=== PATIENT | male | born 1950 | race Caucasian/White ===

== ENCOUNTER 2016-04-16 16:50 | Emergency (ER) | payer OTHER ==
[~2016-04-16] VITALS: Ht 180.3 cm; Wt 80.5 kg
[~2016-04-16 16:50] MED LIST: AMPH10SR PO; ASPI-973 PO; CHOL200025 PO; CYAN500 PO; LAMO100T2 PO; LAMO200T2 PO; LISD70CA2 PO; MINO100T PO; MULT-1018 PO; PARO40TA3 PO; smz/tmp PO
[2016-04-16 16:58] VITALS: BP 138/74; PULSE 86; RESP 16; O2SAT 97
--- NOTE | 2016-04-16 17:52 | ED.REPORT ---
HPI-Rash / Abscess Date of Service Apr 16, 2016 ED Provider: Brian Maurer PA-C Kike is a 65-year-old male with a history of CLL and MRSA infections who presents with a rash on his thigh. Patient states that he noticed a small pimple there yesterday morning which came to a head. He popped that returned this morning he popped out again at this time reports is roughly the size of a nickel. Since that time it has grown to be significantly larger, about 15 cm in widest dimension. He has a standing prescription for minocycline 100 mg and Bactrim DS. He has taken 2 doses, one last night and one this morning. Denies systemic symptoms such as fever, chills, malaise, cold sweats, chest pain, palpitations, shortness of breath, wheezing, abdominal pain, vomiting, diarrhea. Nursing Notes Stated Complaint: LEFT THIGH RED AND SWELLING Chief Complaint: Skin Rash/Abscess Nursing Notes Reviewed: Yes Allergies: Coded Allergies: No Known Allergies (Verified Allergy, Unknown, 04/16/16) Scheduled ([smz/tmp]) 1 TAB PO BID smz/tmp ds 800/160mg Aspirin (Aspirin) 81 Mg Tablet 81 MG PO DAILY Cholecalciferol (Vitamin D3) (Vitamin D3) 2,000 Unit Tablet 2,000 UNIT PO DAILY Cyanocobalamin (Vitamin B12) 500 Mcg Tablet 1,000 MCG PO DAILY Dextroamphetamine/Amphetamine ER (Adderall XR) 10 Mg Capsule 20 MG PO TID Lamotrigine (Lamotrigine) 100 Mg Tablet 200 MG PO HS Lamotrigine (Lamotrigine) 200 Mg Tablet 100 MG PO AM Lisdexamfetamine Dimesylate (Vyvanse) 70 Mg Capsule 70 MG PO DAILY Minocycline (Minocycline) 100 Mg Tablet 100 MG PO BID Multivitamin (Multi Vitamin Daily) 1 Each Tablet 1 EACH PO DAILY Paroxetine (Paroxetine) 40 Mg Tablet 40 MG PO HS General Time Seen by MD: 17:17 Chief Complaint Abscess Past Medical History Past Medical History 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 Head: Atraumatic, normocephalic. Eyes: No scleral icterus or injection. No discharge. Vision grossly intact. ENT: Voice clear, hearing grossly intact. Respiratory: Regular rate and rhythm. Breath sounds present, clear to auscultation and equal bilaterally. No respiratory distress. No increased work of breathing, speaks in complete sentences. Cardiovascular: Regular rate and rhythm, without murmur, gallop or rub. No pedal edema. Skin: Warm and dry. 1 cm area of induration around the central pour anterior lateral thigh, surrounded by a area of erythema. Minimal tenderness. A small amount of pus expressed from pour. Neurological: Grossly nonfocal. Psychological: Alert and oriented. Speech appropriate, linear and logical. Behavior appropriate. Initial Vital Signs Vital Signs (First) Date Time Temp Pulse Resp B/P Pulse Ox O2 Delivery O2 Flow Rate FiO2 04/16/16 16:58 36.8 86 16 138/74 97 Room Air Initial VS: Reviewed, Vital signs normal Re-Eval/Medical Decision Med Decision/Clinical Course I discussed this case with Dr. Swan, who met with and examined the patient. 64-year-old male with a history of CLL and MRSA infections presents with a sore on his left lateral thigh. It appeared approximately 2 days ago and is quickly grown today despite 2 doses of his usual MRSA antibiotic regimen. He complains of no systemic symptoms. Physical examination reveals a small pore which from which purulent discharge can be expressed surrounded by a fairly large area of erythema. Minimal tenderness. I am not concerned about systemic infection at this point, and I do not find the advance of the erythema terribly concerning in light of the short course of antibiotics. This is most likely a recurrence of his MRSA infection. Plan is to demarcate the area of erythema, continue antibiotics and take a sample for culture. Patient to follow-up with primary care provider if it does not resolve or return to emergency department if symptoms worsen. At that time we can reassess therapy. Patient is understand and agree with the plan. Provided instructions for primary care follow-up as well as emergency return precautions. Discharge & Departure Impression: Primary Impression: Cellulitis Site of cellulitis: extremity Site of cellulitis of extremity: lower extremity Laterality: left Qualified Code: L03.116 - Cellulitis of left lower limb Additional Impression: Pustular lesion Disposition: Home Discharge Condition All VS Reviewed: Yes Condition: Stable Patient Instructions: Cellulitis (ED) Additional Instructions: Evaluation for an abscess in the emergency department. Physical reveals a very small abscess on the side of her left thigh. This is surrounded by a fairly large area of redness that may indicate cellulitis. However, at this point would like to doses of her antibiotics taken I am not prepared to say this is treatment failure. I believe this should start to recede as you take more of the antibiotics. If it does not, we have taken a culture sample and we should have a better idea of what to use if your current prescription is not working. We have outlined the area of redness. Follow up with your primary care provider if symptoms have not improved significantly in 3 days. Return to emergency department if the redness advances beyond that by more than about 2 cm , or if he noticed systemic symptoms such as fever, chills, feeling ill, vomiting, racing heart. Referrals: Jeferson Saab MD (PCP) EDSupervising Provider for APC: Judd Swan DO Attending Statement I saw and evaluated Kike with Brian Maurer PA-C and agree with the documentation as above. He is a history of MRSA and CLL and has medications which he takes anytime there is an infection. He began taking the medications last night and notes that the redness has continued to grow somewhat. Small pustule, possible minimal abscess was noted and fluid was expressed and cultured. Plan was drawn around the area of cellulitis and patient is instructed to seek inpatient treatment if outpatient antibiotics are not working or if the redness spreads beyond his area. Vital signs are normal and patient has nontoxic appearance. Patient understands and agrees with this plan copies to: Jeferson Saab MD, Seth PA-C Apr 16, 2016 17:52 Judd Swan DO Apr 17, 2016 01:57
[2016-04-16 18:03] VITALS: BP 138/74; PULSE 86; RESP 16; O2SAT 97
[2016-07-06] MEDS ORDERED: LEVO500T16 PO (16:16)
[2016-07-14] MEDS ORDERED: testosterone inj (08:08)
== END 2016-04-16 18:00 | disposition home or self-care (01) ==
LOC: SED 17:00
DX: L03.116 Cellulitis of left lower limb (principal); Z79.82 Long term (current) use of aspirin; Z86.14 Personal history of Methicillin resistant Staphylococcus aureus infection